=== PATIENT | male | born 1945 | race Caucasian/White ===

== ENCOUNTER 2016-09-13 18:00 | Emergency (ER) | payer OTHER, MEDICARE ==
[2016-09-13] MEDS ORDERED: NORMAL SALINE 10 ML SYRINGE FLUSH IVP PRN (18:10)
[2016-09-13] MEDS ORDERED: Sodium Chloride 0.9% 1,000 ML PRIMARY IV ONE (18:10)
[2016-09-13] MEDS ORDERED: ONDANSETRON 4 MG/2 ML VIAL IVP ONE (18:10)
--- NOTE | 2016-09-13 18:21 | EKG ---
[address] [address] Measurements Intervals [place] Rate: 86 P: 26 IL: 156 QRS: -38 QRSD: 113 T: 26 QT: 351 QTc: 394 Interpretive Statements SINUS RHYTHM INDETERMINATE AXIS PATTERN CONSISTENT WITH PULMONARY DISEASE MODERATE INTRAVENTRICULAR CONDUCTION DELAY [110+ ms QRS DURATION] No previous ECG available for comparison Electronically Signed On 09-14-16 07:51:37 MDT by Koby Fletcher MD [email or web address]
[2016-09-13 18:40] LABS: BASOPHILS # (AUTO) 0.01 10*3/UL; BASOPHILS % (AUTO) 0.2 % (0-1); EOSINOPHILS # (AUTO) 0.05 10*3/UL; EOSINOPHILS % (AUTO) 0.8 % (0-8); HEMATOCRIT 47.5 % (42.0-52.0); HEMOGLOBIN 16.1 g/dL (14.0-18.0); LYMPHOCYTES # (AUTO) 2.77 10*3/uL; MEAN CORPUSCULAR HGB CONC 33.9 g/dL (33-37); MEAN CORPUSCULAR VOLUME 88.5 FL (80-90); MEAN PLATELET VOLUME 8.9 FL (7.4-12.2); MONOCYTES # (AUTO) 0.49 10*3/UL (0.3-0.8); MONOCYTES % (AUTO) 7.8 % (5-15); NEUTROPHILS # (AUTO) 2.95 10*3/UL; NEUTROPHILS % (AUTO) 46.9 % (50-80); RED BLOOD COUNT 5.37 10^6/uL (4.70-6.10)
[2016-09-13 18:42] LABS: PLATELET MORPHOLOGY COMMENT NORMAL MORPHOLOGY (NORM); RBC MORPHOLOGY COMMENT NORMAL MORPHOLOGY (NORM); WBC MORPHOLOGY COMMENT NORMAL MORPHOLOGY (NORM)
[2016-09-13 18:51] LABS: BLOOD UREA NITROGEN 17 mg/dL (7-22); BUN/CREATININE RATIO 21.25 (6-20); CALCIUM 9.7 mg/dL (8.7-10.7); EST GLOMERULAR FILTRATION > 60 (>60 ml/min/1.73m(2)); MAGNESIUM 1.9 mg/dL (1.6-2.4); SERUM ALBUMIN 4.5 g/dL (3.5-4.8)
[2016-09-13 18:52] LABS: SALICYLATE < 1.0 mg/dl (0-20)
--- NOTE | 2016-09-13 20:02 | EKG ---
[address] [address] Measurements Intervals [place] Rate: 75 P: 9 LA: 134 QRS: -44 QRSD: 117 T: 29 QT: 380 QTc: 410 Interpretive Statements SINUS RHYTHM MARKED LEFT AXIS DEVIATION [QRS AXIS < -30] PATTERN CONSISTENT WITH PULMONARY DISEASE MODERATE INTRAVENTRICULAR CONDUCTION DELAY [110+ ms QRS DURATION] Compared to ECG 09/13/2016 18:20:15 Left-axis deviation now present Indeterminate axis no longer present Electronically Signed On 09-14-16 07:52:11 MDT by Koby Fletcher MD [email or web address]
--- NOTE | 2016-09-13 23:24 | PDOC ---
General Adult HPI - General Chief Complaint: Accidental Ingestion /Overdose Stated Complaint: accidental overdose of meds Date Seen by Provider: 09/13/16 Time Seen by Provider: 18:05 Source: POSITIVE: Patient Exam Limitations: POSITIVE: No limitations Nurse's Notes Reviewed & Considered: Yes - History of Present Illness Initial Comment: The patient is a 71-year-old male who presents to the emergency department after having accidentally taken 10-11 10 mg Flexeril tablets. He states that at approximately 11:00 this morning he went to take his Celebrex. He had gotten some generic Celebrex in [place] and picked up a pill bottle and thought that this was his generic Celebrex. He normally takes 100-200 mg of Celebrex a day. Be milligram strength on the bottle was 10 mg so he took approximately 10 of these pills. He subsequently tried to take a nap however was unable to sleep. He started feeling dizzy and was somewhat shaky. It was then that he realized that he actually took cyclobenzaprine instead of Celebrex. His had called poison control at approximately 3 PM and they had recommended that he come to the emergency room. The patient thought that he was fine and initially did not agree to come in. While at rest he developed some muscle twitching and he has continued dizziness with walking. He subsequently agreed to come here to the emergency department for evaluation. He denies any headache , change in vision, chest pain or shortness of breath, numbness or weakness in his extremities. He does have some associated nausea without vomiting. Have you received a tetanus shot in the past 10 years?: Unknown - Patient Home Medications Home Medications: Home Medications Dorina Allergy 180 mg ORAL QD tab 07/05/10 Omeprazole 20 mg ORAL QD #90 capsule 10/27/10 Fluticasone Propionate [Flonase Allergy Relief] 1 spr ASHLEY BID spr 12/03/14 Amlodipine Besylate/Benazepril [Amlodipine-Benazepril 5-20 Mg] 1 cap PO DAILY # 90 cap 10/05/15 Atorvastatin Calcium [Lipitor] 1 tab-cap ORAL QHS #90 tab 10/05/15 Celecoxib [Celebrex] 1 cap PO BID #180 cap 10/05/15 Montelukast Sodium [Singulair] 1 tab-cap ORAL QHS #90 tab 10/05/15 Hydrocodone/Acetaminophen [Hydrocodon-Acetaminoph 7.5-325] 1 tab PO Q4-6H #30 tab 10/27/15 - Patient Allergies Allergies/Adverse Reactions: Allergies Allergy/AdvReac Type Severity Reaction Status Date / Time No Known Drug Allergies Allergy Unverified 07/05/10 16:14 Past Medical History Past Medical History Reviewed: Other (please comment) (Written nursing documentation reviewed, history of hypertension) ROS - Limitations ROS Limitations: No Limitations Constitution: DENIES: Chills, Fever Cardiovascular: DENIES: Chest Pain, Heart Palpitations, Edema Respiratory: DENIES: Shortness Of Breath Neurological: REPORTS: Dizziness. DENIES: Headache, Numbness, Weakness Gastrointestinal: REPORTS: Nausea. DENIES: Abdominal Pain, Vomitting, Diarrhea Musculoskeletal: REPORTS: Denies MS Symptoms Genitourinary: REPORTS: Denies Symptoms Eyes: REPORTS: Denies Symptoms ENT: REPORTS: Denies Symptoms Skin: DENIES: Rash General Adult Exam - General Appearance General Appearance: POSITIVE: Alert, Cooperative, No Acute Distress - HEENT HEENT: POSITIVE: Head Inspection Nml, Eyes Inspection Nml, Ears Inspection Nml, Nose Inspection Nml, Pharynx Inspect. Nml, PERRL, EOMI - Neck Neck: POSITIVE: Normal Inspection. NEGATIVE: Lymphadenopathy - Respiratory Respiratory: POSITIVE: No Respiratory Distress, Breath Sounds Normal - Cardiovascular Cardiovascular: POSITIVE: Regular Rate & Rhythm, No Murmur Peripheral Pulses: Dorsalis-pedis (R): 2+, Dorsalis-pedis (L): 2+ - Abdomen Abdomen: Soft: (All Quadrants), Denies Tenderness: (All Quadrants), No Distention: (All Quadrants) - Skin Skin: POSITIVE: Normal Color, No Rash - Extremities Extremity: Normal ROM: (All Extremities), Normal Inspection: (All Extremities) - Neurological / Psychological Neurological: POSITIVE: Oriented X3, nurse care manager Normal As Tested, Motor Normal, Sensation Normal General Adult Progress - Results Reviewed by me Lab Results Reviewed: Yes Lab Results:: Laboratory Results 09/13/16 09/13/16 Range/Units 18:10 18:42 WBC 6.29 (4.8-10.8) 10^3/uL RBC 5.37 (4.70-6.10) 10^6/uL Hgb 16.1 (14.0-18.0) g/dL Hct 47.5 (42.0-52.0) % MCV 88.5 (80-90) FL MCH 30.0 (27-31) PG MCHC 33.9 (33-37) g/dL RDW Std Deviation 41.2 (39-50) fL RDW Coeff of Savita 12.8 (11.5-14.5) % Plt Count 194 (140-350) 10*3/uL MPV 8.9 (7.4-12.2) FL Immature Gran % (Auto) 0.3 (0-5) % Neut % (Auto) 46.9 L (50-80) % Lymph % (Auto) 44.0 (10-50) % Ponce % (Auto) 7.8 (5-15) % Eos % (Auto) 0.8 (0-8) % Baso % (Auto) 0.2 (0-1) % Immature Gran # (Auto) 0.02 10*3/UL Neut # (Auto) 2.95 10*3/UL Lymph # (Auto) 2.77 10*3/uL Ponce # (Auto) 0.49 (0.3-0.8) 10*3/UL Eos # (Auto) 0.05 10*3/UL Baso # (Auto) 0.01 10*3/UL WBC Morphology Comment Normal morphology (NORM) Plt Morphology Comment Normal morphology (NORM) RBC Morph Comment Normal morphology (NORM) Sodium 142 (135-145) meq/L Potassium 4.0 (3.8-5.2) meq/L Chloride 107 (98-112) meq/L Carbon Dioxide 25 (23-33) meq/L Anion Gap 10 (5-20) BUN 17 (7-22) mg/dL Creatinine 0.8 (0.70-1.50) mg/dL Estimated GFR > 60 (>60 ml/min/1.73m(2)) BUN/Creatinine Ratio 21.25 H (6-20) Glucose 79 (78-110) mg/dL Calculated Osmolality 294.0 H (267-292) mOsm/kg Calcium 9.7 (8.7-10.7) mg/dL Magnesium 1.9 (1.6-2.4) mg/dL Total Bilirubin 0.8 (0.3-1.2) mg/dL AST 32 (21-57) IU/L ALT 47 (21-72) IU/L Alkaline Phosphatase 84 (38-126) IU/L Total Creatine Kinase 162 (55-170) IU/L Troponin I < 0.012 (< 0.040) ng/mL Total Protein 7.4 (6.1-8.0) g/dL Albumin 4.5 (3.5-4.8) g/dL Globulin 2.9 (2.50-4.10) g/dL Albumin/Globulin Ratio 1.50 (1.3-2.0) mg/g Salicylates < 1.0 (0-20) mg/dl Acetaminophen < 10.0 (0-30) ug/mL Serum Alcohol < 10 (0-10) mg/dL EKG Interpreted/Reviewed By Me:: Yes EKG Interpretation:: POSITIVE: Normal Sinus Rhythm, Normal Rate, Normal ST/T, Other (QRS is mildly widened at 113, no previous EKGs are available for comparison) - Patient's Progress MDM / ED Course: The patient is hemodynamically stable on arrival. IV was established and he did receive normal saline. His initial EKG shows normal sinus rhythm with no acute changes, QRS is mildly lengthened however it is unclear whether this is baseline and no old EKGs are available for comparison. His lab work is all essentially unremarkable. He did not develop any deterioration here in the emergency department. I did call and discuss the patient with poison control. They stated that the peak onset of the medication he took should be 4-6 hours. The patient is approximately 8 hours postingestion. They did not anticipate any worsening. They did recommend repeating the EKG to make sure the QRS complex is not widening. This was essentially unchanged. The patient felt comfortable going home at this point. He was advised to rest and push fluids. He will return to the emergency room if any worsening or change in symptoms. He will follow-up with primary care as needed. The case number from poison control was [id number]. - Consult Counseled: POSITIVE: Patient, Family, RE: Lab Results, RE: DX, RE: Need for F/U Patient Care Time - Estimated PCT Patient Care Time (In Minutes): 30 Vital Signs - VS Reviewed Vital Signs Reviewed: Yes Discharge Clinical Impression: Accidental medication overdose Discharge Disposition: Discharged to Home Condition: Stable Additional Instructions: Vital signs and blood work all appear reassuring. Your EKG is normal except for some mild widening of the QRS which is an electrical component in the EKG. There are no old EKGs available for comparison and this may be your baseline. This does not appear to be worsening at all. The peak effect of the medication that she took should be past. Symptoms should gradually improve over the next 12 hours. Return to the emergency room if any worsening or change in symptoms. Follow-up with primary care as needed. Follow Up With: KIN GRAY [Primary Care Provider] -
[2016-09-14 02:24] VITALS: RESP 20; TEMP 97.2
== END 2016-09-13 20:24 | disposition home or self-care (01) ==
LOC: ER 18:00
DX: T48.1X1A Poisoning by skeletal muscle relaxants [neuromuscular blocking agents], accidental (unintentional), initial encounter (principal); R42 Dizziness and giddiness; R11.0 Nausea
CPT/HCPCS: 80053; 80320; 80329 ×2; 82550; 83735; 84484; 85025; 93005; 93010; 96374; 99283 ×2; J2405